=== PATIENT | female | born 1940 | race Caucasian/White ===

== ENCOUNTER 2016-05-29 09:13 | Day surgery (SDC) | payer MEDICARE ==
[2016-05-25 20:41] LABS: BASOPHILS 0.3 %; BASOPHILS ABSOLUTE 0.02 10/3/uL (0.0-0.16); EOSINOPHILS 4.6 %; EOSINOPHILS ABSOLUTE 0.27 10/3/uL (0.0-0.53); HEMATOCRIT 42.6 % (36.0-48.0); HEMOGLOBIN 13.5 g/dL (12.0-16.0); LYMPHOCYTES 36.5 %; LYMPHOCYTES ABSOLUTE 2.16 10/3/uL (0.67-4.30); MEAN CORPUS HGB CONC 31.7 g/dL (32.0-36.0); MEAN CORPUSCULAR HEMOGLOB 29.8 pg (26.0-34.0); MEAN PLATELET VOLUME 10.7 fL (9.2-13.0); MONOCYTES 6.3 %; MONOCYTES ABSOLUTE 0.37 10/3/uL (0.21-1.20); NEUTROPHILS 52.3 %; NEUTROPHILS ABSOLUTE 3.09 10/3/uL (2.02-8.40); PLATELET COUNT 226 10/3/uL (150-400); RBC DISTRIBUTION WIDTH 13.4 % (12.0-16.0); RED CELL COUNT 4.53 10/6/uL (4.0-5.6); WHITE BLOOD CELLS 5.9 10/3/uL (4.5-10.5)
[2016-05-25 20:42] LABS: MANUAL DIFF NO %
[2016-05-25 21:22] LABS: A/G RATIO 1.5 (0.7-1.9); ALBUMIN 4.4 G/DL (3.5-5.0); ALKALINE PHOSPHATASE 43 U/L (45-117); BUN (BLOOD UREA NITROGEN) 23 MG/DL (6-23); CALCIUM, SERUM 8.9 MG/DL (8.5-10.4); CHLORIDE, SERUM 103 MMOL/L (96-112); CO2 (CARBON DIOXIDE) 25 MMOL/L (24-34); CREATININE 0.95 MG/DL (0.55-1.02); GFR AFRICAN AMERICAN 67 ML/MIN (>=60); GFR NON AFRICAN AMERICAN 58 ML/MIN (>=60); GLUCOSE, SERUM 92 MG/DL (60-99); POTASSIUM, SERUM 4.8 MMOL/L (3.5-5.3); SGOT(AST) 25 U/L (5-40); SGPT(ALT) 26 U/L (5-65); SODIUM, SERUM 140 MMOL/L (135-148); TOTAL BILIRUBIN 0.3 MG/DL (0-1.2); TOTAL PROTEIN 7.4 G/DL (6.0-8.5)
--- NOTE | ~2016-05-29 | OP ---
Record Of Operation [facility] [address] [place]. [address] NAME: GARCIA ALANIZ : 38 STATUS : [facility]#: [id number] AGE: 75 ADM/REG DATE : 05/29/16 MR#: [id number] REPORT SERV DATE: 05/29/16 DICTATED BY: RACHEL HARO JR. DATE: 05/29/16 REPORT STATUS : Draft TRANSCRIBED BY: MODL DATE: 05/29/16 DATE OF PROCEDURE: 05/29/2016 REASON FOR SURGERY: This 75-year-old patient presents with a malignancy of the left breast that is deep and centrally located. It was quite small and hormone favorable, but does have a high proliferative rate and appears to be at a fairly high grade. This will certainly impact management issues. She now is scheduled for breast preservation surgery. Of significance, in the year 1999, on the opposite right breast, she had segmentectomy and sentinel node without radiotherapy, but did take five years of tamoxifen. 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 POSTOPERATIVE DIAGNOSIS: History of carcinoma of the right breast and now carcinoma of the left breast. SURGEON: Rachel Haro M.D. SURGERY PERFORMED: [place] node localization followed by left breast segmentectomy and sentinel node resection. DESCRIPTION OF PROCEDURE: The patient was initially injected in the [facility]. She was taken to the operating room and under general anesthesia, she was prepped and draped in supine position in the usual sterile fashion. A curvilinear incision was made at 5 o'clock edge of the areola where previous ultrasound localization had been performed. Vertical dissection was carried down to the deep surface. A 3-dimensional excision measuring 3.5 cm across was performed keeping the now palpable nodule center most within the specimen. It was removed and oriented for pathology. The posterior margin was slightly close and therefore an additional disk measuring 2.5 x 2.5 x 1.5 cm was taken from the new posterior wall. This incorporated a portion of the pectoralis fascia. The wound was irrigated. Hemostasis was obtained. The wound was closed with two layers of Monocryl. Attention was then turned to the left axilla. With help of the Gamma probe, a small curvilinear incision was made and vertical dissection was carried down to singly active hot spot. The single node was removed and an adjacent inactive node was removed. Counts were logged in the surgical log book. The frozen section was not requested for these normal- looking nodes. The wound was irrigated and hemostasis was obtained. The wound was closed with two layers of Monocryl. The patient tolerated the procedure well without complications. ESTIMATED BLOOD LOSS: 10 mL. Record Of Operation [facility] [place] [address]. [address] NAME: GARCIA ALANIZ : 38 STATUS : [facility]#: [id number] AGE: 75 ADM/REG DATE : 05/29/16 MR#: [id number] REPORT SERV DATE: 05/29/16 DICTATED BY: RACHEL HARO JR. DATE: 05/29/16 REPORT STATUS : Draft TRANSCRIBED BY: MARY DATE: 05/29/16 SPONGE COUNT: Correct. /MARY Rachel Haro Jr., M.D. / [id number] CC: Fela Sun Jr., M.D. [facility]
[~2016-05-29 09:13] MED LIST: 8 HOUR650 MG PO; ASAB PO; DIOV80 PO; DURAFLEX PO; GLUCPH PO; LEXAPRO10 PO; MULTIVIT/MIN PO; PRILOSEC40 MG PO; PROLIA60 MG/1 ML SC; SYN88 PO; VITAMIN B-625 MG PO; VITD PO; WELLXL300 PO; ZOCOR40 PO
== END 2016-05-29 17:01 | disposition home or self-care (01) ==
LOC: SDC 09:13
PROVIDERS: Surgery Surgical Oncology
PROC: 07B60ZX Excision of Left Axillary Lymphatic, Open Approach, Diagnostic (ICD-10-PCS; 2016-05-29)
PROC: 0HBU0ZZ Excision of Left Breast, Open Approach (ICD-10-PCS; principal; 2016-05-29 12:30)
DX: C50.912 Malignant neoplasm of unspecified site of left female breast (principal); I10 Essential (primary) hypertension; E11.8 Type 2 diabetes mellitus with unspecified complications; E78.00 Pure hypercholesterolemia, unspecified; M19.90 Unspecified osteoarthritis, unspecified site; D64.9 Anemia, unspecified; Z90.49 Acquired absence of other specified parts of digestive tract; Z98.818 Other dental procedure status; Z87.891 Personal history of nicotine dependence
CPT/HCPCS: 36415; 71020-PO; 78195; 80053; 82962; 85025; 88305; 88307; 88342; 93005; A9270-GY; A9541; J2250; J2405; J3010